=== PATIENT | female | born 1970 | race Caucasian/White ===

== ENCOUNTER → 2016-06-09 | Outpatient (CLI) | payer BC, OTHER ==
--- NOTE | 2016-06-09 13:46 | MA ---
Screening Digital Mammogram With iCAD Analysis Clinical Indications: Routine screening. Technique: Standard cephalocaudal projections are obtained. Digital breast tomosynthesis was performe d in the MLO projection with reconstruction at 1.0 mm slice thickness and composite MLO views reconst ructed. This examination is processed by the iCAD computer aided detection system. Comparison: March 2015. Breast density: Type C: Heterogeneously dense. Findings: CAD was reviewed. No masses, suspicious calcifications or secondary signs of malignancy are seen. There has been no significant change in the appearance of either breast. Impression: Negative mammogram. BI-RADS 1. Recommendation: Routine mammographic screening in one year as long as physical examination is negativ e in this patient with heterogeneously dense breast parenchyma. [facility] will send a result letter to the patient. Negative mammography should not preclude additional workup of a clinically suspicious finding. The patient's information is entered into a reminder system with a target due date for her next mammo gram.
== END ==
LOC: FIMAGING 09:50
DX: Z12.31 Encounter for screening mammogram for malignant neoplasm of breast (principal)
CPT/HCPCS: G0202

== ENCOUNTER → 2018-05-31 | Outpatient (CLI) | payer OTHER | LOC: FIMAGING 12:30 | PROVIDERS: ATTEND Obstetrics & Gynecology | DX: Z12.31 Encounter for screening mammogram for malignant neoplasm of breast (principal) ==

== ENCOUNTER 2018-08-23 11:30 | Day surgery (SDC) | payer OTHER ==
[2018-08-23] MEDS ORDERED: ceFAZolin 2 GM/DEXTROSE 100 ML IV ONE (11:48)
[2018-08-23] MEDS ORDERED: LR 1,000 ML IV ONE (11:50)
--- NOTE | 2018-08-23 13:34 | PDHPUP ---
History & Physical Update H&P update statement: This history and physical update is based on an assessment of the patient which was completed after admission or registration (within 24 hours), but prior to the surgery/procedure. H&P update: H&P reviewed & patient examined, no change in patient's condition since H&P completed
[2018-08-23] MEDS ORDERED: BUPIVACAINE 0.5% 30 ML SDV ONE (14:02)
[2018-08-23] MEDS ORDERED: CEFAZOLIN 2 GM/DEXTROSE/100 ML BAG IV ONE (15:00)
--- NOTE | 2018-08-23 15:02 | PDANEPAE ---
ANE History of Present Illness ventral hernia ANE Past Medical History - Cardiovascular History Hx Hypertension: No Hx Arrhythmias: No Hx Chest Pain: No Hx Coronary Artery / Peripheral Vascular Disease: No Hx CHF / Valvular Disease: No Hx Palpitations: No - Pulmonary History Hx COPD: No Hx Asthma/Reactive Airway Disease: No Hx Recent Upper Respiratory Infection: No Hx Oxygen in Use at Home: No Hx Sleep Apnea: No Sleep Apnea Screening Result - Last Documented: Negative - Neurologic History Hx Cerebrovascular Accident: No Hx Seizures: No Hx Dementia: No - Endocrine History Hx Diabetes: No Hypothyroid: No Hyperthyroid: No Obesity: no - Renal History Hx Renal Disorders: No - Liver History Hx Hepatic Disorders: No - Neurological & Psychiatric Hx Hx Neurological and Psychiatric Disorders: No - Cancer History Hx Cancer: No - Congenital Disorder History Hx Congenital Disorders: No - GI History GERD: no Hx Gastrointestinal Disorders: No - Other Health History Other Health History: right arm tendonitis from tennis - Chronic Pain History Chronic Pain: Yes (right arm tendonitis) - Surgical History Prior Surgeries: x2. d&c ANE Review of Systems Review of systems is: negative Review of Systems: - Exercise capacity METS (RN): 5 METS ANE Patient History - Allergies Allergies/Adverse Reactions: No Known Allergies Allergy (Verified 08/22/18 14:58) - Home Medications Home medications: home medication list seen and reviewed Home Medications: Herbals/Supplements -Info Only 08/22/18 [Last Taken 08/22/18] - NPO status NPO Since - Liquids (Date): 08/23/18 NPO Since - Liquids (Time): 08:30 NPO Since - Solids (Date): 08/22/18 NPO Since - Solids (Time): 19:30 - Anes Hx Anes Hx: no prior problems - Smoking Hx Smoking Status: Never smoked Marijuana use: No - Alcohol Use Alcohol Use: Rarely - Family Anes Hx Family Anes Hx: none Family Hx Anesthesia Complications: sister gets very nauseous ANE Labs/Vital Signs - Vital Signs Blood Pressure: 118/73 Heart Rate: 42 Respiratory Rate: 16 O2 Sat (%): 100 Height: 165.1 cm Weight: 53.524 kg ANE Physical Exam - Airway Neck exam: FROM Mallampati Score: Class 2 Mouth exam: normal dental/mouth exam - Pulmonary Pulmonary: no respiratory distress, clear to auscultation - Cardiovascular Cardiovascular: regular rate and rhythym, no murmur, rub, or gallop - ASA Status ASA Status: I ANE Anesthesia Plan Anesthesia Plan: general endotracheal anesthesia
[2018-08-23] MEDS ORDERED: MIDAZOLAM 2 MG/2 ML VIAL IVP ONE (15:04)
[2018-08-23] MEDS ORDERED: fentaNYL 100 MCG/2 ML INJ ONE (15:10)
[2018-08-23] MEDS ORDERED: PROPOFOL 200 MG/20 ML VIAL ONE (15:10)
[2018-08-23] MEDS ORDERED: ROCURONIUM 50 MG/5 ML VIAL ONE (15:10)
[2018-08-23] MEDS ORDERED: LIDOCAINE 2% 5 ML SDV ONE (15:11)
[2018-08-23] MEDS ORDERED: DEXAMETHASONE 4 MG/ML VIAL ONE (15:11)
[2018-08-23] MEDS ORDERED: KETOROLAC 30 MG/1 ML SDV ONE (15:11)
[2018-08-23] MEDS ORDERED: ONDANSETRON 4 MG/2 ML VIAL ONE (15:11)
--- NOTE | 2018-08-23 15:46 | PDGENHP ---
History & Physical Chief Complaint: VH History of Present Illness: 48 Y F c VH. PMH denies. PSH: 2 csxn. Meds: denies. allergies denies. alert. nad. wdwn. ctab. rrr. abd soft, + reducible midline bulge. AP: VH. Plan open repair possible mesh.
--- NOTE | 2018-08-23 16:05 | POSTOPPROG ---
Post Op Note Date of Operation: 08/23/18 Surgeon: Brielle Day Program Manager Slp: Brielle Day Anesthesiologist: Bettina Iqbal Anesthesia: GET(General Endotracheal) Pre-op Diagnosis: epigastric midline ventral hernia Post-op Diagnosis: same Procedure: open VH repair c mesh Findings: 1.5 cm defect Inf/Abcess present in the surg proc area at time of surgery?: No EBL: Minimal Complications: none Bowel Protocol: N/A Clean Closure Performed: N/A
[2018-08-23] MEDS ORDERED: NEOSTIGMINE METHYLSULFATE 5 MG/5 ML SYR ONE (16:23)
[2018-08-23] MEDS ORDERED: GLYCOPYRROLATE 0.2 MG/1 ML VIAL ONE ×2 (16:23)
[2018-08-23] MEDS ORDERED: NALOXONE HCL 0.4 MG/ML INJ IVP PRN (16:38)
[2018-08-23] MEDS ORDERED: MEPERIDINE 25 MG/0.5 ML AMP IVP PRN (16:38)
[2018-08-23] MEDS ORDERED: fentaNYL 100 MCG/2 ML INJ IVP PRN (16:38)
[2018-08-23] MEDS ORDERED: PROMETHAZINE HCL 25 MG/ML INJ IVP PRN (16:38)
--- NOTE | 2018-08-23 16:39 | POSTANESTH ---
Post Anesthetic Evaluation Cardiovascular Status: Normal, Stable Respiratory Status: Normal, Stable Level of Consciousness/Mental Status: Can Participate in Eval Pain Control: Adequate, Prn Tx Ordered Nausea/Vomiting Control: Adequate, Prn Tx Ordered Complications Possibly Related to Anesthesia: None Noted
[2018-08-23 18:08] VITALS: BP 117/76
--- NOTE | 2018-08-26 10:11 | GOP ---
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 ANESTHESIOLOGIST: Dr. Iqbal. PREOPERATIVE DIAGNOSIS: Midline ventral hernia. POSTOPERATIVE DIAGNOSIS: Midline ventral hernia. PROCEDURE PERFORMED: Open ventral hernia repair with mesh. FINDINGS: The patient was found to have incarcerated omental tissue with a 1.5 cm fascial defect. DESCRIPTION OF PROCEDURE: The patient was taken to the operating room where she received a satisfact ory general endotracheal anesthesia by Dr. Iqbal. She was placed in the supine position, prepped a nd draped in the usual sterile fashion. A short vertical incision was made and carried down through the subcutaneous tissue. Hernia sac was identified. It was dissected free from surrounding subcutan eous tissue back down to the fascial edges. The sac was then opened at the fascial edges, its conten ts were reduced and the sac was actually reduced as well. A subfascial pocket was created and a piec e of polypropylene mesh was placed in the subfascial preperitoneal position. The defect was then marta sed directly with interrupted 0 Surgilon [id number] sutures, incorporating the mesh into the marta sure. The wound was infiltrated with 0.5% Marcaine. Subcu was closed with 3-0 Vicryl, the skin with a 4-0 Monocryl subcuticular stitch and all layers infiltrated with 0.5% Marcaine. She tolerated the procedure well and was taken to the recovery room in good condition. /[id number]/MODL
== END 2018-08-23 18:00 | disposition home or self-care (01) ==
LOC: FSGY 11:30
PROVIDERS: ATTEND Surgery
PROC: 0WQF0ZZ Repair Abdominal Wall, Open Approach (ICD-10-PCS; principal; 2018-08-23 12:15)
DX: K43.9 Ventral hernia without obstruction or gangrene (principal)
CPT/HCPCS: C1781; J0690; J1100; J1885; J2250; J2405; J2704; J2710; J3010